=== PATIENT | female | born 1955 | race Caucasian/White ===

== ENCOUNTER 2020-08-22 14:15 | Emergency (ER) | payer MEDICARE, SELFPAY ==
[2020-08-22] VITALS (19 sets, daily range): BP systolic 97–142; BP diastolic 46–101; PULSE 76–140; RESP 12–33; TEMP 36.5; O2SAT 92–98
--- NOTE | 2020-08-22 14:00 | RT.EKG_ITS ---
APPROVED REPORT Exam: Resting ECG Patient Location: E HR:134 bpm ECG Measurements Heart Rate 134 AXIS NH [id number] P [id number] QRSd 76 QRS -13 QT 297 T 47 QTc 444 Conclusion Narrow complex tachycardia .? atrial activity Nonspecific ST depression, anterior leads.
--- NOTE | 2020-08-22 14:15 | DI.CT_ITS ---
EXAM: CT HEAD - STROKE PROTOCOL CLINICAL HISTORY: Seizure, headache, preevious CVA. TECHNIQUE: Imaging Protocol: Axial computed tomography images with coronal and sagittal reformatted images were created and reviewed COMPARISON: No exams were available for comparison FINDINGS: There are no skull fractures nor fluid in the visualized paranasal sinuses. There is no evidence of intracranial hemorrhage, intra or extra-axial. Ventricles are not enlarged o r shifted. No blood within the ventricular system nor within the basal cisterns. There is nonhemorrhagic lacunar infarct in the right periventricular white matter measuring 7 x 6 mil limeters. Asymmetric area of hypodensity in the white matter noted in the right frontal lobe. Not a ssociated with obvious mass effect upon the ipsilateral frontal horn of the right lateral ventricle. No findings in cerebellar hemispheres nor within the smita, midbrain, thalami. IMPRESSION: Right-sided ischemic sequelae., as described above.No evidence of intracranial hemorrhage, intra or e xtra-axial. If clinically indicated follow-up MRI with diffusion imaging can be performed for added specificity.. RADIATION DOSE DELIVERED: 645.46mGy.cm Total DLP DATA REPOSITORY: All CT scans at this facility are submitted to the National Radiology Data Registry (NRDR) Dose Index Registry (DIR) with the [employer] (A[employer]). RADIATION OPTIMIZATION: All CT scans at this facility use at least one of these dose optimization te chniques: automated exposure control; mA and/or kV adjustment per patient size (includes targeted exa ms where dose is matched to clinical indication); or iterative reconstruction.
--- NOTE | 2020-08-22 14:21 | NUR.NOTE ---
Nursing Note: called [facility] for med list, problem list and recent visit history with pt's verbal approval. [facility] states they will send to fax right away.
--- NOTE | 2020-08-22 14:22 | W.ED.GENAD ---
Discharge Plan Disposition Patient Disposition: HOME Condition: Improving Discharge Details Clinical Impression: Brain mass Primary Care Provider: Saul Lizarraga ED Provider: Heri Jane Home Meds and New Rx's Prescriptions: New dexamethasone 4 mg tablet 4 mg PO DAILY Qty: 14 RF: 0 levetiracetam [Keppra] 500 mg tablet 500 mg PO BID Qty: 30 RF: 0 Continued bupropion HCl [Wellbutrin SR] 150 mg Tablet Sustained-Release 12 Hr 150 mg PO QAM RF: 0 atorvastatin 20 mg Tablet 20 mg PO DAILY RF: 0 citalopram [Celexa] 40 mg Tablet 40 mg PO DAILY RF: 0 aspirin 325 mg Tablet 325 mg PO BID RF: 0 meclizine 25 mg Tablet 25 mg PO TID RF: 0 metoprolol tartrate 25 mg Tablet 25 mg PO BID RF: 0 Discharge Instructions Additional Instructions: You have a 3.4 cm mass that appears most consistent with a meningioma. I discussed your case with Dr. Farris of [facility] neurosurgery who stated he would call you at home tomorrow between 8 and 9 AM to speak about further work-up. Please take Keppra/levetiracetam as prescribed twice daily. This is to prevent further seizures. Please take the dexamethasone as prescribed. This is a steroid to reduce swelling around the site of the mass. You may take the next dose 6 hours after leaving the ER or in the morning when you wake up. Continue your regular medications. We will arrange follow-up for you in the [facility] neurology clinic. Return to the ER for any acute concerns. Medical Decision Making 65-year-old female brought from her home by EMS. She is reported to have been found to gasping and with seizure-like activity by her daughter. EMS was called and found her tachycardic but without evidence of ongoing seizure. She had no persistent post ictal behavior and no focal neurologic deficits. She reports to me that she has had 2 previous strokes in 2005 and has been taking her medications as prescribed. She denied any recent illness. She states she has had some mild right-sided weakness since her previous stroke, but does not note any new deficits. She arrives to the ER with a blood pressure 130/88, pulse 133, interactive and stating she does not recall what happened. Patient placed on a audio visual specialist, IV access established, referred for stat CT scan of the head, laboratories, EKG and chest x-ray. Records obtained and reviewed from [facility]. 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 At that time an MRI revealed occlusion of the right vertebral artery. Patient's medications include aspirin, atorvastatin, bupropion, Celexa, meclizine, metoprolol. Labs reveal white count 10, hematocrit 44, platelets 258. Sodium 135, potassium 4.4, chloride 101, bicarb 25, BUN 10, creatinine 0.9. Troponin is negative. CT scan is without evidence of acute infarct or hemorrhage, please see formal report. Patient was referred for MRI which reveals a 3.4 cm extra-axial mass with appearance most suggestive of meningioma. Case discussed with neurology and neurosurgery at [facility]. We will start the patient on Keppra and she was given an IV load in the ED and will start on [address] Farris from neurosurgery asked that I place her on dexamethasone with a taper and that he will call her at home tomorrow to plan further evaluation. HPI General Mode of arrival: EMS. Date/Time Provider Initiated Documentation: 08/22/20 14:25. Limitations to Documentation: no limitations. Information obtained by: patient and EMS. History of Present Illness 65 year old F presents to the emergency department with the chief complaint of Seizure-like activity at home, now improved, described as severe, Patient reports no radiation. Patient started experiencing this minute(s) and it has been now resolved. No relieving factors improve symptom(s), No exacerbating factors reported . Patient notes headaches and nausea/vomiting. Patient did receive the following treatments prior to arrival, none Related Data Home Medications Medication Instructions Recorded Confirmed aspirin 325 mg PO BID 08/22/20 08/22/20 atorvastatin 20 mg PO DAILY 08/22/20 08/22/20 bupropion HCl [Wellbutrin SR] 150 mg PO QAM 08/22/20 08/22/20 citalopram [Celexa] 40 mg PO DAILY 08/22/20 08/22/20 dexamethasone 4 mg PO DAILY #14 tab 08/22/20 levetiracetam [Keppra] 500 mg PO BID #30 tab 08/22/20 meclizine 25 mg PO TID 08/22/20 08/22/20 metoprolol tartrate 25 mg PO BID 08/22/20 08/22/20 Previous Rx's Medication Instructions Recorded dexamethasone 4 mg PO DAILY #14 tab 08/22/20 levetiracetam [Keppra] 500 mg PO BID #30 tab 08/22/20 Allergies Allergy/AdvReac Type Severity Reaction Status Date / Time morphine Allergy Unverified 08/22/20 14:17 General Stated Complaint: [facility]Medical HARINI: 2 Review of Systems Narrative: Frontal headache. Nauseated. Does not recall having seizure. Did not bite her tongue. Recently well. States previous CVA in 2005. 8 systems reviewed and otherwise negative. [facility] Social History Smoking/Tobacco Use Status: Current every day Tobacco Type: cigarettes Smoking risk assessment performed?: Yes Alcohol Intake: never Drug use: Never Substance use type: does not use Do you feel safe at home: Yes Do you feel safe in your relationship?: Yes Exam Narrative Exam Narrative: GEN: awake, alert, oriented 3. Pleasant, well groomed, interactive. HEAD: Normocephalic, atraumatic ENT: Mucous membranes moist, oropharynx unremarkable, External ear exam unremarkable EYES: PERRL, EOMI NECK: Full ROM, no REGGIE, no menigismus CHEST/RESP: Nontender, clear to auscultation bilateral, no wheeze/rhonchi/rales CARDIOVASCULAR: RRR, no murmur, rub nitish. 2+ Rad pulse bilateral ABDOMEN: Soft, nontender, no mass. +Bowel sounds EXT: Full ROM, no edema, no rash. Discrete 5 - weakness right upper extremity. Neuro: Grossly normal neurologic exam, conversant, interactive. Psych: Speech fluent, thoughts congruent, affect normal Course Vital Signs Vital signs: Vital Signs Temperature 36.5 C 08/22/20 14:06 Pulse 133 H 08/22/20 14:06 Respiratory Rate 25 H 08/22/20 14:06 Blood Pressure 130/88 08/22/20 14:06 Pulse Oximetry 96 08/22/20 14:06 Temperature 36.5 C 08/22/20 14:06 Temperature Source Skin 08/22/20 14:06 Pulse 138 H 08/22/20 14:16 Pulse 136 H 08/22/20 14:17 Respiratory Rate 28 H 08/22/20 14:17 Respiratory Effort Non-Labored 08/22/20 14:20 Blood Pressure 139/101 H 08/22/20 14:16 Blood Pressure Mean 111 08/22/20 14:16 Blood Pressure Position Supine 08/22/20 14:06 Pulse Oximetry 96 08/22/20 14:17 Oxygen Delivery Method Room Air 08/22/20 14:06 Oxygen Flow Rate 0 08/22/20 14:06 Pain Level 7 08/22/20 14:06
[2020-08-22 14:28] LABS: Abs Immature Grans 0.04 10^3/uL (0.0-0.06); Absolute Basophil Count 0.05 10^3/uL (0.0-0.2); Absolute Eosinophil Count 0.22 10^3/uL (0.0-0.7); Absolute Lymphocyte Count 2.09 10^3/uL (1.2-3.4); Absolute Monocyte Count 0.64 10^3/uL (0.1-0.8); Basophils % 0.5; HCT 44.4 % (36.0-46.0); HGB 14.7 g/dL (11.2-15.7); Immature Grans % 0.4; Lymphocytes % 19.3; MCH 29.6 pg (27.0-33.0); MCHC 33.1 % (32.0-36.0); MCV 89.5 fL (80-95); MPV 9.8 fL (8.0-11.0); Monocytes % 5.9; Neutrophils % 71.9; Nucleated RBC 0 %; Platelet Count 258 10^3/uL (130-400); RBC 4.96 10^6/uL (3.93-5.22); RDW 11.9 % (11.7-14.6); RDW-SD 38.9 fL; WBC 10.84 10^3/uL (4.4-10.8)
[2020-08-22 14:30] LABS: Absolute Neutrophil Count 7.79 10^3/uL (1.2-6.7)
--- NOTE | 2020-08-22 14:41 | DI.RAD_ITS ---
EXAM: XR CHEST 1V IN DI DEPT CLINICAL HISTORY: seizure. TECHNIQUE: 2D digital imaging was performed. COMPARISON: No exams were available for comparison FINDINGS: LUNGS: Clear. No pleural abnormality seen. HEART: Normal. MEDIASTINUM: Normal. OTHER FINDINGS: None. IMPRESSION: No acute pulmonary findings. DATA REPOSITORY: RADIATION DOSE DELIVERED: Total DLP
[2020-08-22 14:46] LABS: ALT 18 U/L (14-59); AST 19 U/L (15-37); Albumin 3.9 g/dL (3.4-5.0); Alkaline Phosphatase 106 U/L (46-116); Anion Gap 8.2 mmol/L (3-11); BUN 10 mg/dL (7-18); Bilirubin, Total 0.5 mg/dL (0.2-1.0); CO2 25.8 mmol/L (21.0-32.0); CREATININE 0.92 mg/dL (0.55-1.02); Chloride 101 mmol/L (98-107); Glucose 122 mg/dL (74-106); Potassium 4.4 mmol/L (3.5-5.1); Sodium 135 mmol/L (136-145); Total Protein 8.2 g/dL (6.4-8.2)
[2020-08-22] MEDS: Ondansetron 4 MG/2 ML VIAL IVP ×2 (14:59→19:36)
[2020-08-22] MEDS: Normal Saline 1,000 ML 1000 ML IV (15:00)
[2020-08-22 15:08] LABS: Troponin I < 0.05 ng/mL (<0.06)
[2020-08-22] MEDS: Metoprolol 5 MG/5 ML VIAL IVP (15:08)
--- NOTE | 2020-08-22 15:45 | DI.MRI_ITS ---
EXAM: MR BRAIN WO/W CLINICAL HISTORY: seizure, prev CVA. TECHNIQUE: Multiplanar multisequence MRI of the brain was performed. CONTRAST MATERIAL: IV Contrast: 11 ML of Dotarem contrast administered. COMPARISON: CT CT HEAD - STROKE PROTOCOL from 08/22/2020 FINDINGS: The exam is limited by patient motion. Multiple repeat sequences were performed. VENTRICLES AND EXTRA AXIAL SPACES: Normal in size and morphology for the patient's age. HEMORRHAGE: None. CEREBRAL PARENCHYMA: There is a circumscribed extra-axial mass measuring 3.4 cm along the right front al convexity. It appeared isoattenuating with brain on the CT performed earlier the same day and was not well seen. Not show calcification. It shows some heterogeneous signal. There is enhancement o f the mass which is mostly homogeneous. There is mild enhancement of the adjacent dura. The finding s likely represent a meningioma. There is mass effect upon the right frontal lobe and slight adjacen t edema. No focus of restricted diffusion to suggest acute infarct. Old lacunar infarct right centru m semiovale. MIDLINE SHIFT: None. BRAINSTEM/CEREBELLUM: Normal. VISUALIZED PARANASAL SINUSES/MASTOIDS: Minimal scattered fluid mastoids. IMPRESSION: 3.4 centimeter extra-axial enhancing mass over the right frontal convexities suspicious for meningio ma. Old right lacunar infarct. No evidence of an acute infarct. DATA REPOSITORY:
[2020-08-22 16:08] LABS: Bilirubin Negative (Negative); Blood Small (Negative); Clarity Clear (Clear); Glucose Negative (Negative); Ketones Negative (Negative); Leukocyte Esterase Negative (Negative); Nitrite Negative (Negative); Specific Gravity 1.025 (1.005-1.025); Urobilinogen 0.2 EU/dL (Up TO 0.2)
[2020-08-22 16:24] LABS: Bacteria Few HPF (Negative); C & S Indicated? No; Casts 3-5 Hyaline LPF (Negative); Crystals Negative HPF (Negative); Epithelial Cells Rare HPF (Negative); Mucus Trace (Negative); WBC 0-2 HPF (0-5)
[2020-08-22] MEDS: Normal Saline Flush 10 ML SYR IVP ×2 (17:12→19:37)
[2020-08-22] MEDS: Gadoterate meglumine 20 ML VIAL 11 ML IVP (17:12)
--- NOTE | 2020-08-22 17:28 | DI.VRAD_ITS ---
PROCEDURE INFORMATION: Exam: MR Head Without and With Contrast Exam date and time: 08/22/2020 5:08 PM Age: 65 years old Clinical indication: Other: Seizure, previous CVA TECHNIQUE: Imaging protocol: MR of the head without and with intravenous contrast. 3D rendering (Not supervised by radiologist): MIP and/or 3D reconstructed images were created by the technologist. Contrast material: DOTAREM; Contrast volume: 11 ml; Contrast route: INTRAVENOUS (IV); COMPARISON: CT HEAD - STROKE PROTOCOL 08/22/2020 2:33 PM FINDINGS: Brain: Approximately 3.4 cm homogeneously enhancing round extra-axial mass along the right frontal convexity, appearance most suggestive of meningioma. Mass effect upon the adjacent right frontal lobe with mild vasogenic edema. Chronic right centrum semiovale lacunar infarct. Nonspecific T2/FLAIR hyperintensities of the periventricular and deep subcortical white matter, most likely secondary to chronic small vessel ischemic change. No intracranial hemorrhage or extra-axial fluid collection. No restricted diffusion to suggest acute infarct. Cerebral ventricles: Prominence of the ventricles and sulci, likely attributed to parenchymal volume loss. Bones/joints: Unremarkable. Paranasal sinuses: Normal as visualized. No acute sinusitis. Mastoid air cells: Few opacified left mastoid air cells. Orbits: Unremarkable. Soft tissues: Unremarkable. IMPRESSION: 1. Approximately 3.4 cm homogeneously enhancing round extra-axial mass along the right frontal convexity, appearance most suggestive of meningioma. Recommend neurosurgery consultation. 2. Chronic findings, as above. Dictated and Authenticated by: Serge Maria MD. Ordering:DRISS Liriano MD
[2020-08-22] MEDS: levETIRAcetam 1,000 MG in Normal Saline 100 ML 400 MG IVPB ×2 (17:36→19:03)
[2020-08-22 17:53] LABS: Troponin I < 0.05 ng/mL (<0.06)
--- NOTE | 2020-08-22 19:03 | NUR.NOTE ---
Nursing Note: report given to Sourav Kwong RN
--- NOTE | 2020-08-22 19:16 | NUR.NOTE ---
referral sent to nuerology for f/u on seizure and brain mass. [facility] ED Nursing Note:
[2020-08-22] MEDS: Dexamethasone 4 MG/ML VIAL IVP (19:37)
[2020-08-22] MEDS: Dexamethasone 4 MG TAB PO (19:37)
[2020-08-22] MEDS: Acetaminophen 325 MG TAB 650 MG PO (19:44)
== END 2020-08-22 20:21 | disposition home or self-care (01) ==
PROVIDERS: Emergency Provider Emergency Medicine; PCP Family Medicine
DX: R90.0 Intracranial space-occupying lesion found on diagnostic imaging of central nervous system (principal); R11.0 Nausea
CPT/HCPCS: 36415; 36416; 70553; 80053; 82962; 93005; 96361; 96365; 96375; 96376; 99285; 70450; 71045; 81003; 81015; 83735; 84484; 85025; 93010; J1100; J1953; J2405; J8540

== ENCOUNTER 2021-10-13 00:43 | Outpatient (CLI) | payer MEDICARE, SELFPAY ==
--- NOTE | 2021-10-13 | DI.MRI_ITS ---
Exam(s) MR BRAIN WO/W EXAM: MR BRAIN WO/W CLINICAL HISTORY: F/U MENINGIOMA,D32.9,S/P RESECTION. TECHNIQUE: Multiplanar multisequence MRI of the brain was performed. CONTRAST MATERIAL: IV Contrast: 10 ML of Dotarem contrast administered. COMPARISON: MR MR BRAIN WO/W from 08/22/2020 FINDINGS: Right frontal craniotomy defect. Area of encephalomalacia in the anterior right frontal lobe in the prior location of the meningioma. Adjacent mild edema. No evidence of enhancement. No new masses. The orbits, sinuses and pituitary are unremarkable. Stable lacunar infarct adjacent to the right la teral ventricle. Mild left mastoid effusion. Vascular flow voids are intact. IMPRESSION: Status post resection of right frontal meningioma. No evidence of residual tumor or recurrence. No new mass or other acute abnormality. DATA REPOSITORY:
[2021-10-13 09:19] LABS: CREATININE 0.7 mg/dL (0.55-1.02)
[2021-10-13] MEDS: Gadoterate meglumine 20 ML VIAL 10 ML IVP (09:33)
[2021-10-13] MEDS: Normal Saline Flush 10 ML SYR IVP (09:33)
== END 2021-10-13 01:03 ==
LOC: DI 00:43
PROVIDERS: PCP Family Medicine; Visit Provider Neurological Surgery
DX: D32.0 Benign neoplasm of cerebral meninges (principal); Z01.812 Encounter for preprocedural laboratory examination; G93.89 Other specified disorders of brain; Z98.890 Other specified postprocedural states
CPT/HCPCS: 70553; 82565